=== PATIENT | male | born 1995 | race Caucasian/White ===

== ENCOUNTER 2020-03-25 08:00 | Outpatient (CLI) | payer OTHER ==
[~2020-03-25 08:00] MED LIST: CLARAVIS
== END 2020-03-25 18:00 | disposition home or self-care (01) ==
LOC: PPH VACUNA 08:00
DX: Z23 Encounter for immunization (principal)

== ENCOUNTER 2021-02-17 08:00 | Outpatient (CLI) | payer BC | END 2021-02-17 08:30 | disposition home or self-care (01) | LOC: PPH VACUNA 08:00 | PROVIDERS: ATTEND Emergency Medicine Pediatric Emergency Medicine | DX: Z23 Encounter for immunization (principal) ==